=== PATIENT | male | born 1975 | race Caucasian/White ===

== ENCOUNTER → 2024-02-19 16:29 | Outpatient (REF) | payer BC, SELFPAY | LOC: HWRAD 16:29 | PROVIDERS: ATTENDING PHYSICIAN Internal Medicine Rheumatology; FAMILY PHYSICIAN Physician Assistant Medical | DX: L40.50 Arthropathic psoriasis, unspecified (principal) | CPT/HCPCS: 72100; 72202; 73560; 73565 ==

== ENCOUNTER → 2024-03-31 15:33 | Outpatient (REF) | payer BC, SELFPAY | LOC: MRI 3T 15:33 | PROVIDERS: ATTENDING PHYSICIAN Internal Medicine Rheumatology; FAMILY PHYSICIAN Physician Assistant Medical | DX: L40.50 Arthropathic psoriasis, unspecified (principal) | CPT/HCPCS: 72197; A9575 ==

== ENCOUNTER → 2024-05-24 06:34 | Day surgery (SDC) | payer BC, SELFPAY | LOC: GI 06:34 | PROVIDERS: ATTENDING PHYSICIAN Internal Medicine | DX: Z12.11 Encounter for screening for malignant neoplasm of colon (principal); K57.30 Diverticulosis of large intestine without perforation or abscess without bleeding; K64.8 Other hemorrhoids; D12.3 Benign neoplasm of transverse colon; D12.5 Benign neoplasm of sigmoid colon | CPT/HCPCS: 45385; 45380; 88305 ==